=== PATIENT | female | born 2000 | race African-American/Black ===

== ENCOUNTER 2020-08-29 15:19 | Outpatient (CLI) | payer BC, SELFPAY ==
[2020-08-29 16:51] LABS: Hepatitis B Surface Antigen Negative (Negative)
[2020-08-29 17:09] LABS: Hepatitis C Virus Antibody Negative (Negative)
[2020-08-30 07:43] LABS: Rapid Plasma Reagin Non-Reactive (NonReactive)
== END 2020-08-29 15:20 | disposition home or self-care (01) ==
LOC: ANHLAB 15:20
PROVIDERS: Visit Provider Obstetrics & Gynecology
DX: Z11.3 Encounter for screening for infections with a predominantly sexual mode of transmission (principal)
CPT/HCPCS: 36415; 86592; 86803; 87340

== ENCOUNTER 2020-10-19 18:02 | Emergency (ER) | payer OTHER, SELFPAY ==
--- NOTE | ~2020-10-19 | CT_ITS ---
EXAMINATION: CT abdomen pelvis wo con DATE: 10/19/2020 19:36 INDICATION: Right-sided flank pain TECHNIQUE: Computed tomography (CT) of the abdomen and pelvis was performed without intravenous contr ast. The dose-length product (DLP) was 1403.71 mGy-cm. Automated exposure control and iterative recon struction technique were employed. COMPARISON: None FINDINGS: The lung bases are clear. The heart size is normal. There is a partially imaged 2.6 cm mass in the lower outer left breast. The liver, spleen, pancreas, gallbladder, and adrenal glands are nor mal. The kidneys are unremarkable. No stones are identified in the kidneys, ureters, or bladder. Ther e is no hydronephrosis or hydroureter. No pathologically enlarged abdominal or pelvic lymph nodes are identified. There is no free intraperitoneal gas or evidence of bowel obstruction. A moderate volume of colonic stool is present. The appendix is normal. IMPRESSION: 1. No CT correlate for the patient's symptoms. 2. Partially imaged mass in the lower outer left breast. Follow-up with nonemergent targeted left zay ast ultrasound is recommended. Reviewed, dictated and finalized at location A. [employer] IMPRESSION: 1. No CT correlate for the patient's symptoms. 2. Partially imaged mass in the lower outer left breast. Follow-up with nonemer gent targeted left breast ultrasound is recommended.
[2020-10-19 18:10] VITALS: BP 114/64; PULSE 76; RESP 20; TEMP 36.6; O2SAT 99
[2020-10-19 18:29] LABS: Basophils Absolute Auto 0.1 K/mm3 (0.0-0.1); Basophils Percent Auto 0.7 % (0.2-1.2); Eosinophils Absolute Auto 0.4 K/mm3 (0-0.3); Eosinophils Percent Auto 4.3 % (0-4.4); Hematocrit 41.4 % (37.0-47.0); Hemoglobin 13.8 g/dL (12.0-15.0); Immature Granulocyte Absolute 0.06 K/mm3 (0.00-0.031); Immature Granulocyte Percent A 0.6 % (0-0.5); Lymphocytes Absolute Auto 3.14 K/mm3 (0.9-3.2); Lymphocytes Percent Auto 32.2 % (18.3-44.2); Mean Corpuscular HGB Conc 33.3 g/dl (32-36); Mean Corpuscular Hemoglobin 32.1 pg (26-34); Mean Corpuscular Volume 96.3 fl (80-100); Mean Platelet Volume 10.5 fl (7.4-10.4); Monocytes Absolute Auto 0.7 K/mm3 (0.1-0.6); Monocytes Percent Auto 6.8 % (2.6-8.5); Neutrophils Absolute Auto 5.4 K/mm3 (1.3-6.7); Neutrophils Percent Auto 55.4 % (45.5-73.1); Platelet Count Result 265 k/mm3 (150-375); Red Cell Distribution Width 13.4 % (11.5-14.5); White Blood Count 9.8 K/mm3 (4.5-10.0)
--- NOTE | 2020-10-19 18:29 | ED.GENADULT ---
HPI - General Adult General Chief complaint: Abdominal Pain Stated complaint: right side pain Time Seen by Provider: 10/19/20 18:19 Source: patient and EMS Mode of arrival: EMS Limitations: no limitations History of Present Illness HPI narrative: Patient is a 20-year-old female who presents to emergency department for evaluation of right flank pain that began acutely today patient thought she had to have a bowel movement but did very little patient denies any rectal bleeding melena patient on arrival to emergency department notes intense pain to the right flank denies similar occurrence in the past patient denies any vomiting but did note nausea when the pain intensified Related Data Home Medications Medication Instructions Recorded Confirmed acetazolamide 125 mg tablet 125 mg PO DAILY 08/29/20 09/07/20 Allergies Allergy/AdvReac Type Severity Reaction Status Date / Time No Known Allergies Allergy Verified 09/06/20 13:05 Review of Systems Review of Systems: All systems reviewed & are unremarkable except as noted in HPI and below PMFSH Past Medical History Medical History Acid reflux Herpes Family History Family History Father Hypertension Grandparent Hypertension Family history of type 2 diabetes mellitus Sibling Family history of type 1 diabetes mellitus Social History Social History Smoking status: Former smoker Alcohol intake: current Substance use: never Exam Narrative: Exam Narrative: GENERAL: Well-appearing, obese, and in no acute distress. HEAD: Normocephalic, atraumatic. EYES: PERRLA and EOMI. ENT: Nares clear, no rhinorrhea or epistaxis. Mucous membranes moist. NECK: Supple. No adenopathy or masses. CHEST: Clear to auscultation. No respiratory distress. No wheezes rales or rhonchi HEART: Regular rate and rhythm. No murmur heard. Normal peripheral pulses. ABDOMEN: Soft, right side abdominal tenderness, nondistended EXTREMITIES: Normal range of motion. No edema. SKIN: Warm, dry, no rash. NEURO: No focal deficits. Alert and oriented x3. PSYCH: Normal mood and affect. Course Course Emergency Course: Patient at this time in the room no distress aware of case findings treatment plan and diagnosis felt appropriate for outpatient reevaluation likely passed kidney stone patient will follow with primary care patient noting that she is already being worked up for the breast mass seen. . Patient agrees to follow-up outpatient feeling much better with interventions and notes that she will return Vital Signs Vital signs: Vital Signs Temperature 97.8 F 10/19/20 18:10 Pulse Rate 76 10/19/20 18:10 Respiratory Rate 20 10/19/20 18:10 Blood Pressure 114/64 10/19/20 18:10 Pulse Oximetry 99 10/19/20 18:10 Temperature 98.0 F 10/19/20 18:34 Pulse Rate 84 10/19/20 18:34 Respiratory Rate 18 10/19/20 18:34 Blood Pressure 108/57 L 10/19/20 18:34 Pulse Oximetry 99 10/19/20 18:10 Medical Decision Making MDM Narrative Medical decision making narrative: Patient with likely urolithiasis that was passed given her findings. Patient will follow with primary care and is feeling much better at this time. Vital Signs Vital Signs: Vital Signs Temperature 97.8 F 10/19/20 18:10 Pulse Rate 76 10/19/20 18:10 Respiratory Rate 20 10/19/20 18:10 Blood Pressure 114/64 10/19/20 18:10 Pulse Oximetry 99 10/19/20 18:10 Temperature 98.0 F 10/19/20 18:34 Pulse Rate 84 10/19/20 18:34 Respiratory Rate 18 10/19/20 18:34 Blood Pressure 108/57 L 10/19/20 18:34 Pulse Oximetry 99 10/19/20 18:10 Lab Data Result diagrams: 10/19/20 18:16 10/19/20 18:16 Labs: Lab Results 10/19/20 10/19/20 10/19/20 Range/Units 18:16 18:16 18:26 WBC 9.8 (4.5-
[2020-10-19 18:34] VITALS: BP 108/57; PULSE 84; RESP 18; TEMP 36.7
[2020-10-19 18:40] LABS: Add Urine Microscopic? YES; Appearance Urine Cloudy (Clear); Bilirubin Urine Negative (Negative); Blood Urine 3+ (Negative); Color Urine Straw (Yellow); Glucose Urine UA Negative (Negative); Ketones Urine Negative (Negative); Leukocyte Esterase Ur Trace LEU/UL (Negative); Mucus Urine Rare /lpf; Nitrate Urine Negative (Negative); Protein Urine 1+ mg/dL (Negative); RBC Urine >75 /hpf (0-2); Specific Grav Ur 1.021 (1.001-1.035); Squamous Epithelial Cell Urine Moderate /hpf (Few); Urobilinogen Urine Negative mg/dL (<2.0)
[2020-10-19] MEDS: FAMOTIDINE 20 MG/2 ML VIAL IV PUSH (18:51)
[2020-10-19] MEDS: SODIUM CHLORIDE 0.9% IV 1,000 ML 999 ML IV CONT (19:37)
[2020-10-19 20:32] LABS: Alanine Aminotransferase 12 U/L (4-35); Albumin Level 3.5 g/dL (3.5-5.1); Alkaline Phosphatase 57 U/L (38-126); Anion Gap 3 mmol/L (8-16); Aspartate Amino Transferase 20 U/L (14-36); Bilirubin,Total 0.3 mg/dL (0.2-1.3); Blood Urea Nitrogen 15 mg/dL (7-17); Calcium 8.2 mg/dL (8.4-10.2); Carbon Dioxide 21 mmol/L (22-30); Chloride 113 mmol/L (98-107); Estimated CRCL calculation 155 ml/min; Estimated Glomerular Filt Rate > 60; Glucose 89 mg/dL (65-105); Lipase 217 U/L (23-300); Sodium 137 mmol/L (137-145)
[2020-10-19 20:49] VITALS: BP 131/87; PULSE 81; RESP 16; O2SAT 100
== END 2020-10-19 20:49 | disposition home or self-care (01) ==
PROVIDERS: Emergency Medicine; Emergency Provider Emergency Medicine; PCP Family Medicine
DX: R10.9 Unspecified abdominal pain (principal); Z87.891 Personal history of nicotine dependence; K21.9 Gastro-esophageal reflux disease without esophagitis
CPT/HCPCS: 36415; 74176; 80053; 81001; 81025; 83690; 85025; 96361; 96374; 96375; 99284; J0131; J7030